=== PATIENT | male | born 1965 | race Caucasian/White ===

== ENCOUNTER → 2019-05-16 | Outpatient (CLI) | payer OTHER | LOC: RAD 09:37 | DX: M76.9 Unspecified enthesopathy, lower limb, excluding foot (principal) ==

== ENCOUNTER 2019-07-19 13:00 | Outpatient (RCR) | payer OTHER | END 2019-09-02 | disposition still patient (30) | LOC: PT | DX: M25.561 Pain in right knee (principal); G89.29 Other chronic pain ==

== ENCOUNTER 2020-01-28 15:45 | Outpatient (RCR) | payer OTHER | END 2020-01-28 16:15 | disposition still patient (30) | LOC: PT 15:45 | DX: M25.561 Pain in right knee (principal); Z98.890 Other specified postprocedural states ==

== ENCOUNTER → 2022-05-24 | Outpatient (CLI) | payer OTHER | LOC: RAD 15:43 | DX: R07.89 Other chest pain (principal) ==